=== PATIENT | female | born 1980 | race African-American/Black ===

== ENCOUNTER 2016-05-07 09:08 | Emergency (ER) | payer OTHER ==
[2016-05-07 10:09] LABS: BASOPHIL 2.2 % (0-2); EOSINOPHIL 1.5 % (0-5); HCT 40.9 % (37.0-47.0); HGB 13.8 g/dl (12.5-16.0); MCH 30.1 pg (25.0-31.0); MCHC 33.7 g/dL (32.0-36.0); MCV 89.1 fL (78.0-100.0); MONOCYTE 6.8 % (0-12); MPV 10.4 fL (6.0-9.5); NEUTROPHIL 28.7 % (41-80); PLT 269 K/uL (150-400); RBC 4.59 M/uL (4.20-5.40); RDW 13.6 % (11.5-14.0); WBC 4.6 K/uL (4.0-10.5)
[2016-05-07 10:12] LABS: LYMPHOCYTE 60.8 % (15-48)
[2016-05-07 10:15] LABS: BILIRUBIN NEGATIVE (NEGATIVE); BLOOD 3+ Ery/uL (NEGATIVE); CLARITY CLEAR (CLEAR); COLOR YELLOW (YELLOW); GLUCOSE (U) NORMAL (NORMAL); KETONE (U) NEGATIVE (NEGATIVE); LEUKOCYTES TRACE Leu/uL (NEGATIVE); NITRITE NEGATIVE (NEGATIVE); PROTEIN TRACE (LOW) mg/dL (NEGATIVE); SPECIFIC GRAVITY >=1.030 (1.001-1.030); UROBILINOGEN 0.2 mg/dL (0.2-1.0)
[2016-05-07 10:23] LABS: ALBUMIN 4.3 g/dL (3.5-5.0); BILIRUBIN - TOTAL 0.4 mg/dL (0.1-1.0); CREATININE 1.2 mg/dL (0.5-1.0); GLOBULIN (CALCULATION) 2.8 g/dL (2.2-4.2); TOTAL PROTEIN 7.1 g/dL (6.4-8.3)
[2016-05-07 10:30] LABS: URINARY WBC TNTC
[2016-05-07 10:31] LABS: URINARY RBC 20-50
[2016-05-07 10:32] LABS: BACTERIA TRACE; MUCOUS TRACE
[2016-05-07 10:33] LABS: RENAL EPITHELIAL CELLS RARE
== END 2016-05-07 13:20 | disposition home or self-care (01) ==
LOC: FER 09:08
PROVIDERS: Emergency Medicine
DX: A59.01 Trichomonal vulvovaginitis (principal); B96.89 Other specified bacterial agents as the cause of diseases classified elsewhere; I10 Essential (primary) hypertension; Z88.5 Allergy status to narcotic agent; Z91.040 Latex allergy status; Z79.899 Other long term (current) drug therapy
CPT/HCPCS: 36415; 74000; 80053; 81001; 83690; 85025; 87210; J0500